=== PATIENT | female | born 1965 | race Caucasian/White ===

== ENCOUNTER 2016-09-06 14:50 | Emergency (ER) | payer MEDICAID ==
[2016-09-06 15:31] VITALS: BP 125/68
[2016-09-06] MEDS ORDERED: Cyclobenzaprine TAB* 10 MG PO ONE (16:05)
[2016-09-06] MEDS ORDERED: Ketorolac INJ* 30 MG/ML 1 ML VIAL IM ONE (16:05)
--- NOTE | 2016-09-06 16:18 | UC ---
Dental HPI - HPI Summary HPI Summary: Pain in R jaw, radiating up into R adventism, rapidly worsening over the last couple days. Denies new dental problems (has pervasive decay but no new gum swelling or tenderness), fever, or trouble breathing. Has had pain from her TMJ before. - History of Current Complaint Chief Complaint: Tarik Stated Complaint: FACE SWOLLEN, JAW/EAR PAIN Time Seen by Provider: 09/06/16 15:45 Hx Obtained From: Patient Hx Last Menstrual Period: [id number] ?: No Onset/Duration: Gradual Onset, Lasting Days Severity: Moderate - Allergies/Home Medications Allergies/Adverse Reactions: Allergies Allergy/AdvReac Type Severity Reaction Status Date / Time WHEAT Allergy Severe "MAKES ME Uncoded 09/06/16 15:31 BLOATED" PMH/Surg Hx/FS Hx/Imm Hx Endocrine History Of: Reports: Diabetes, Thyroid Disease Cardiovascular History Of: Denies: Cardiac Disorders, Hypertension Respiratory History Of: Denies: COPD, Asthma GI/ History Of: Denies: Ulcer Neurological History Of: Reports: Migraine - Hx OF, USUALLY 1 EVERY FEW MONTHS Psychological History Of: Reports: Depression - Hx OF, TAKES NO CURRENT MED - Surgical History Surgical History: Yes Surgery Procedure, Year, and Place: 1987 & 1989 x 2 [facility] Lumpectomy 2014 - Family History Known Family History: Positive: None - Social History Occupation: Unemployed Lives: With Family Alcohol Use: None Substance Use Type: None Smoking Status (MU): Former Smoker Type: Cigarettes Amount Used/How Often: 1PPD Length of Time of Smoking/Using Tobacco: 10 YRS Have You Smoked in the Last Year: No When Did the Patient Quit Smoking/Using Tobacco: 1996 - Immunization History Most Recent Influenza Vaccination: DOES NOT GET Most Recent Tetanus Shot: UNKOWN Most Recent Pneumonia Vaccination: NEVER Review of Systems Constitutional: Negative Skin: Negative Eyes: Negative ENT: Other - R jaw pain Respiratory: Negative Cardiovascular: Negative Gastrointestinal: Negative Genitourinary: Negative Motor: Negative Neurovascular: Negative Musculoskeletal: Negative Neurological: Negative Psychological: Negative All Other Systems Reviewed And Are Negative: Yes Physical Exam Triage Information Reviewed: Yes Appearance: Pain Distress - moderate, Obese Vital Signs: Initial Vital Signs Temp 98.4 F 09/06/16 15:23 Pulse 64 09/06/16 15:23 Resp 16 09/06/16 15:23 BP 125/68 09/06/16 15:23 Pulse Ox 100 09/06/16 15:23 Vital Signs Reviewed: Yes Eye Exam: Normal Eyes: Positive: Conjunctiva Clear ENT: Positive: Hearing grossly normal, Pharynx normal, TMs normal, Other: - R TMJ tender. Negative: Nasal congestion, Nasal drainage, Tonsillar swelling, Tonsillar exudate Dental: Positive: Gross Decay/Caries @ - pervasive, R rear teeth mostly decayed to gums Neck exam: Normal Neck: Positive: Supple, Nontender, No Lymphadenopathy Respiratory Exam: Normal Respiratory: Positive: Chest non-tender, Lungs clear, Normal breath sounds, No respiratory distress, No accessory muscle use Cardiovascular Exam: Normal Cardiovascular: Positive: RRR, No Murmur Musculoskeletal Exam: Normal Neurological Exam: Normal Neurological: Positive: Alert Psychological Exam: Normal Skin Exam: Normal Dental Complaint Course/Dx - Differential Dx/Diagnosis Provider Diagnoses: R TMJ pain. Elevated blood pressure due to pain Discharge - Discharge Plan Condition: Stable Disposition: HOME Prescriptions: Cyclobenzaprine TAB* [Flexeril 10 MG TAB*] 10 mg PO TID PRN #15 tab PRN Reason: Pain Ketorolac TAB (NF) [Toradol TAB (NF)] 10 mg PO Q8H #15 tab Patient Education Materials: Temporomandibular Disorder (ED) Referrals: Leanna Thomas PA [Primary Care Provider] - Additional Instructions: Avoid any food that requires chewing until your pain is markedly improved. If you do not feel somewhat better by , please see your primary care provider.
== END 2016-09-06 16:32 | disposition home or self-care (01) ==
LOC: UCEAST 14:50
DX: M26.601 Right temporomandibular joint disorder, unspecified (principal); R03.0 Elevated blood-pressure reading, without diagnosis of hypertension; E66.9 Obesity, unspecified; Z87.891 Personal history of nicotine dependence
CPT/HCPCS: 96372; 99212; A9270-GY; G0463; J1885

== ENCOUNTER 2017-07-16 14:55 | Emergency (ER) | payer MEDICAID ==
[2017-07-16 18:28] VITALS: BP 115/54
--- NOTE | 2017-07-16 19:36 | UC ---
Respiratory Complaint HPI - HPI Summary HPI Summary: 2 DAYS OF HOARSENESS, PND, COUGH AND CHEST SORENESS FROM COUGHING. NO FEVER, ST , CARNEY, NAUSEA OR BODY ACHES. - History of Current Complaint Chief Complaint: UCGeneralIllness Stated Complaint: SORE THROAT Time Seen by Provider: 07/16/17 18:53 Hx Obtained From: Patient Hx Last Menstrual Period: [id number] Onset/Duration: Gradual Onset, Lasting Days, Still Present Timing: Constant Severity Initially: Moderate Severity Currently: Moderate Pain Intensity: 5 Pain Scale Used: 0-10 Numeric Character: Cough: Productive Aggravating Factors: Nothing Alleviating Factors: Nothing Associated Signs And Symptoms: Positive: URI, Nasal Congestion, Hoarseness. Negative: Dyspnea, Fever, Chills, Pleuritic Chest Pain, Wheezing - Allergies/Home Medications Allergies/Adverse Reactions: Allergies Allergy/AdvReac Type Severity Reaction Status Date / Time WHEAT Allergy Severe "MAKES ME Uncoded 07/16/17 18:18 BLOATED" PMH/Surg Hx/FS Hx/Imm Hx - Additional Past Medical History Additional PMH: FIBROMYALGIA Endocrine History: Diabetes, Hypothyroidism Cardiovascular History: Hypertension - Surgical History Surgical History: Yes Surgery Procedure, Year, and Place: 1987 & 1989 x 2 [facility] Lumpectomy 2014. gastric bypass 2014 - Family History Known Family History: Positive: Hypertension - Social History Alcohol Use: None Substance Use Type: None Smoking Status (MU): Light Every Day Tobacco Smoker Type: Cigarettes Amount Used/How Often: 10 cig/ days Length of Time of Smoking/Using Tobacco: 10 YRS Have You Smoked in the Last Year: No When Did the Patient Quit Smoking/Using Tobacco: 1996 - Immunization History Most Recent Influenza Vaccination: DOES NOT GET Most Recent Tetanus Shot: UNKOWN Most Recent Pneumonia Vaccination: NEVER Review of Systems Constitutional: Negative ENT: Ear Ache, Nasal Discharge Respiratory: Cough Cardiovascular: Negative Gastrointestinal: Negative Musculoskeletal: Negative All Other Systems Reviewed And Are Negative: Yes Physical Exam Triage Information Reviewed: Yes Appearance: Well-Appearing, No Pain Distress, Well-Nourished Vital Signs: Initial Vital Signs Temp 98.3 F 07/16/17 18:22 Pulse 73 07/16/17 18:22 Resp 16 07/16/17 18:22 BP 115/54 07/16/17 18:22 Pulse Ox 100 07/16/17 18:22 Vital Signs Reviewed: Yes Eyes: Positive: Conjunctiva Clear ENT: Positive: Hearing grossly normal, Pharynx normal, TMs normal, Hoarse voice Neck: Positive: Supple, Nontender, No Lymphadenopathy Respiratory Exam: Normal Cardiovascular Exam: Normal Abdomen Description: Positive: Soft Musculoskeletal: Positive: No Edema Neurological: Positive: Alert Psychological: Positive: Age Appropriate Behavior Skin: Negative: rashes UC Diagnostic Evaluation - Laboratory O2 Sat by Pulse Oximetry: 100 Respiratory Course/Dx - Differential Dx/Diagnosis Provider Diagnoses: ACUTE URI/LARYNGITIS Discharge - Discharge Plan Condition: Stable Disposition: HOME Patient Education Materials: Laryngitis (ED), Upper Respiratory Infection (ED) Referrals: Kerri Thomas [Primary Care Provider] - If Needed Additional Instructions: YOUR SYMPTOMS ARE LIKELY VIRALLY MEDIATED AND SHOULD RESOLVE ON THEIR OWN WITH TIME. REST, HYDRATE, OTC MEDS NEEDED. SEEK FOLLOW-UP IF YOU ARE NOT IMPROVING OVER THE NEXT 1-2 WEEKS. IF YOU HAVE ANY QUESTION OR CONCERNS YOU MAY CALL ME HERE ON TUESDAY 7AM-2:30PM OR TUESDAY 2:30PM-10PM.
== END 2017-07-16 19:41 | disposition home or self-care (01) ==
LOC: UCEAST 14:55
DX: J06.9 Acute upper respiratory infection, unspecified (principal); J04.0 Acute laryngitis; M79.7 Fibromyalgia; E11.9 Type 2 diabetes mellitus without complications; E03.9 Hypothyroidism, unspecified; I10 Essential (primary) hypertension; Z98.84 Bariatric surgery status; Z87.891 Personal history of nicotine dependence
CPT/HCPCS: 99211; G0463

== ENCOUNTER 2017-08-13 12:41 | Emergency (ER) | payer OTHER, MEDICAID ==
[2017-08-13 14:32] VITALS: BP 110/60
--- NOTE | 2017-08-13 15:05 | UC ---
Respiratory Complaint HPI - HPI Summary HPI Summary: worsening cough, sinus pain and congestion thick green and yellow sputum, chills and fatigue - History of Current Complaint Chief Complaint: UCGeneralIllness Stated Complaint: COUGH,CONGESTED Time Seen by Provider: 08/13/17 14:58 Hx Obtained From: Patient Hx Last Menstrual Period: [id number] ?: No Onset/Duration: Gradual Onset, Lasting Days - 7, Worse Since - getting worse daily Timing: Constant Severity Initially: Moderate Severity Currently: Severe Pain Intensity: 10 Pain Scale Used: 0-10 Numeric Character: Cough: Productive Aggravating Factors: Deep Breaths Alleviating Factors: Nothing Associated Signs And Symptoms: Positive: Fever, Chills, Pleuritic Chest Pain, URI, Nasal Congestion, Sinus Discomfort - Allergies/Home Medications Allergies/Adverse Reactions: Allergies Allergy/AdvReac Type Severity Reaction Status Date / Time WHEAT Allergy Severe "MAKES ME Uncoded 08/13/17 14:19 BLOATED" Home Medications: Home Medications Liothyronine TAB* [Cytomel TAB*] 25 mcg PO DAILY 08/13/17 [History Confirmed 03/23] Omeprazole CAP* [Prilosec CAP* 20 MG] 20 mg PO DAILY 08/13/17 [History Confirmed 08/13/17] Propranolol TAB* [Inderal TAB*] 20 mg PO TID 08/13/17 [History Confirmed ] Venlafaxine EXT RELEASE CAP* [Effexor Xr CAP*] 100 mg PO BID 08/13/17 [History Confirmed 08/13/17] PMH/Surg Hx/FS Hx/Imm Hx Previously Healthy: No Endocrine History: Hypothyroidism GI/ History: Gastroesophageal Reflux Neurological History: Migraine Psychological History: Depression Cancer History: Breast Cancer - Surgical History Surgical History: Yes Surgery Procedure, Year, and Place: 1987 & 1989 x 2 [facility] Lumpectomy 2014. gastric bypass 2015 - Family History Known Family History: Positive: None, Hypertension - Social History Occupation: Unemployed Lives: With Family Alcohol Use: None Substance Use Type: None Smoking Status (MU): Former Smoker Type: Cigarettes Amount Used/How Often: 10 cig/ days Length of Time of Smoking/Using Tobacco: 10 YRS Have You Smoked in the Last Year: No When Did the Patient Quit Smoking/Using Tobacco: 1996 - Immunization History Most Recent Influenza Vaccination: DOES NOT GET Most Recent Tetanus Shot: UNKOWN Most Recent Pneumonia Vaccination: NEVER Review of Systems Constitutional: Chills, Fatigue Skin: Negative Eyes: Negative ENT: Ear Ache, Nasal Discharge, Sinus Congestion, Sinus Pain/Tenderness Respiratory: Cough Cardiovascular: Negative Gastrointestinal: Negative Genitourinary: Negative Motor: Negative Neurovascular: Negative Musculoskeletal: Negative Neurological: Headache Psychological: Negative Is Patient Immunocompromised?: No All Other Systems Reviewed And Are Negative: Yes Physical Exam Triage Information Reviewed: Yes Appearance: Well-Appearing, No Pain Distress, Well-Nourished Vital Signs: Initial Vital Signs Temp 98.2 F 08/13/17 14:25 Pulse 69 08/13/17 14:25 Resp 18 08/13/17 14:25 BP 110/60 08/13/17 14:25 Pulse Ox 98 08/13/17 14:25 Vital Signs Reviewed: Yes Eye Exam: Normal Eyes: Positive: Conjunctiva Clear ENT Exam: Normal ENT: Positive: Normal ENT inspection, Hearing grossly normal, Pharynx normal, Nasal congestion, Nasal drainage, Sinus tenderness, Uvula midline. Negative: TMs normal, Tonsillar swelling, Tonsillar exudate, Trismus, Muffled voice, Hoarse voice, Dental tenderness Dental Exam: Normal Neck exam: Normal Neck: Positive: Supple, Nontender, No Lymphadenopathy Respiratory Exam: Normal Respiratory: Positive: Chest non-tender, Lungs clear, No respiratory distress, No accessory muscle use, Decreased breath sounds Cardiovascular Exam: Normal Cardiovascular: Positive: RRR, No Murmur, Pulses Normal, Brisk Capillary Refill Musculoskeletal Exam: Normal Musculoskeletal: Positive: Strength Intact, ROM Intact, No Edema Neurological Exam: Normal Neurological: Positive: Alert, Muscle Tone Normal Psychological Exam: Normal Skin Exam: Normal Diagnostic Evaluation - Laboratory O2 Sat by Pulse Oximetry: 98 Respiratory Course/Dx - Course Course Of Treatment: Augmentin, flonase, albuterol, robitussin AC increase fluids follow with pcp - Differential Dx/Diagnosis Provider Diagnoses: Acute Bronchitis/Sinusitis Discharge - Discharge Plan Condition: Stable Disposition: HOME Prescriptions: Albuterol HFA INHALER* [Ventolin HFA Inhaler*] 2 puff INH Q4H PRN #1 mdi PRN Reason: cough/chest congestion Amoxicillin/Clavulanate TAB* [Augmentin TAB 875*] 875 mg PO BID #20 tab Fluticasone NASAL SPRAY 50MCG* [Flonase NASAL SPRAY 50MCG*] 2 spray BOTH NARES DAILY #1 btl guaiFENesin/CODIEN 100MG-10MG* [Robitussin AC 100Mg-10Mg*] 5 - 10 ml PO Q4H PRN #120 udc MDD 40 PRN Reason: cough Patient Education Materials: Sinusitis (ED), Acute Bronchitis (ED), Bronchospasm (ED) Referrals: Kerri Thomas [Primary Care Provider] - If Needed
== END 2017-08-13 15:24 | disposition home or self-care (01) ==
LOC: UCEAST 12:41
DX: J20.9 Acute bronchitis, unspecified (principal); J32.9 Chronic sinusitis, unspecified; E03.9 Hypothyroidism, unspecified; K21.9 Gastro-esophageal reflux disease without esophagitis; G43.909 Migraine, unspecified, not intractable, without status migrainosus; F32.9 Major depressive disorder, single episode, unspecified; Z98.84 Bariatric surgery status; Z85.3 Personal history of malignant neoplasm of breast; Z87.891 Personal history of nicotine dependence
CPT/HCPCS: 99212; G0463

== ENCOUNTER 2017-10-28 16:17 | Emergency (ER) | payer MEDICARE, MEDICAID ==
[2017-10-28] MEDS ORDERED: NS 0.9% 1000 ML* 1,000 ML IV ONE (17:06)
--- NOTE | 2017-10-28 17:41 | RAD ---
Indication: Syncopal episode. Lethargy. Fibromyalgia. Comparison: November 02, 2010 Technique: Noncontrast CT vertex of skull through foramen magnum. Report: The sulci, ventricles, and basal cisterns are normal for age. Pardo matter white matter differentiation is preserved without evidence for edema. No intra or extra axial hemorrhage, mass, or fluid collection detected. Unchanged indolent appearing 0.6 cm maximum dimension focus of calcification ossification along the RIGHT margin of the interhemispheric falx at the vertex without concern. Unremarkable visualized orbital contents. Unremarkable calvarium and skull base. Unremarkable scalp. The visualized paranasal sinuses and mastoid air spaces are clear. IMPRESSION: Negative unenhanced head CT without suspicious change compared with the November 02, 2010 exam.
--- NOTE | 2017-10-28 17:47 | RAD ---
Indication: Syncope. Lethargy. Comparison: July 02, 2013 Technique: Sitting AP chest 1733 hours Report: Obese body habitus limits image quality. Clear lungs and pleural spaces. Negative for pneumothorax. The heart, pulmonary vasculature, and mediastinal contours are unremarkable. Unremarkable osseous structures and soft tissue contours. IMPRESSION: No evidence for acute intrathoracic disease.
[2017-10-28 17:57] LABS: Urine Appearance Cloudy; Urine Blood Negative (Negative); Urine Color Yellow; Urine Ketones Negative (Negative); Urine Protein Negative (Negative); Urine Specific Gravity 1.025 (1.010-1.030); Urine Urobilinogen Negative (Negative)
[2017-10-28 18:12] LABS: EGFR Non-African American 50.2 (>60)
[2017-10-28 18:52] LABS: ABS Basophils 0 10^3/ul (0-0.2); ABS Eosinophils 0 10^3/ul (0-0.6); ABS Lymphocytes 2.5 10^3/ul (1.0-4.8); ABS Monocytes 0.4 10^3/ul (0-0.8); ABS Nucleated RBC 0 10^3/ul; Eosinophil % 0.4 % (0-6); Hematocrit 36 % (35-47); Lymphocyte % 42.3 % (25-47); Mean Corpuscular HGB Conc 33 g/dl (31-36); Mean Corpuscular Hemoglobin 28 pg (27-31); Mean Corpuscular Volume 86 fL (80-97); Nucleated Red Blood Cells % 0.1; Platelet Count 200 10^3/ul (150-450); Red Blood Count 4.21 10^6/ul (4.0-5.4); Red Cell Distribution Width 17 % (10.5-15)
[2017-10-28] MEDS ORDERED: Ketorolac INJ* 30 MG/ML 1 ML VIAL IV PUSH ONE (19:04)
[2017-10-28 19:57] VITALS: BP 138/67
--- NOTE | 2017-10-28 21:03 | ED ---
Della Blanchard Rebecca, scribed for Jose Hanks MD on 10/28/17 at 1705 . Complex/Multi-Sys Presentation - HPI Summary HPI Summary: Pt is a 52 y/o F who presents to ED c/o fatigue, generalized weakness, and arthralgias. Initially, on triage, her pain was moderate, ranked 5/10. Additionally describes having a "major brain fog," constipation, and that she had "passed out" and was "slumped over" in a chair last night. Denies CP, SOB, fever, V/D. PMHx fibromyalgia - typically takes 50 mg Tramadol BID. Has been trying to see her PCP with [facility] but has been unable to get in to restart Tramadol and Synthroid. - History Of Current Complaint Chief Complaint: EDGeneral Time Seen by Provider: 10/28/17 16:59 Hx Obtained From: Patient Onset/Duration: Still Present Severity Currently: Moderate - 5/10 Location: Pain At: - Arthralgias Aggravating Factor(s): Nothing Alleviating Factor(s): Nothing Associated Signs And Symptoms: Positive: Other - Fatigue, arthralgias, generalzied weakness - Allergies/Home Medications Allergies/Adverse Reactions: Allergies Allergy/AdvReac Type Severity Reaction Status Date / Time WHEAT Allergy Severe "MAKES ME Uncoded 10/28/17 16:30 BLOATED" PMH/Surg Hx/FS Hx/Imm Hx Endocrine/Hematology History: Reports: Hx Diabetes, Hx Thyroid Disease Cardiovascular History: Reports: Hx Hypotension, Hx Hypertension Respiratory History: Reports: Hx Sleep Apnea Denies: Hx Asthma, Hx Chronic Obstructive Pulmonary Disease (COPD) GI History: Reports: Hx Gastroesophageal Reflux Disease - ON DAILY PRILOSEC, Hx Irritable Bowel Denies: Hx Ulcer Musculoskeletal History: Reports: Hx Fibromyalgia Sensory History: Reports: Hx Contacts or Glasses - GLASSES Opthamlomology History: Reports: Hx Contacts or Glasses - GLASSES Neurological History: Reports: Hx Headaches, Hx Migraine - Hx OF, USUALLY 1 EVERY FEW MONTHS Psychiatric History: Reports: Hx Depression - Hx OF, TAKES NO CURRENT MED Denies: Hx Substance Abuse - Cancer History Cancer Type, Location and Year: breast cancer 11/2014 - Surgical History Surgery Procedure, Year, and Place: 1987 & 1989 x 2 [facility] Lumpectomy 2014. gastric bypass 2015 Hx Anesthesia Reactions: No Infectious Disease History: No Infectious Disease History: Denies: Hx Hepatitis, Hx Human Immunodeficiency Virus (HIV), History Other Infectious Disease, Traveled Outside the [place] in Last 30 Days - Family History Known Family History: Positive: Hypertension - Social History Alcohol Use: None Substance Use Type: Reports: None Hx Tobacco Use: No Smoking Status (MU): Former Smoker Type: Cigarettes Amount Used/How Often: 10 cig/ days Length of Time of Smoking/Using Tobacco: 10 YRS Have You Smoked in the Last Year: No Review of Systems Positive: Fatigue, Other - Generalized weakness, "major brain fog". Negative: Fever Negative: Chest Pain Negative: Shortness Of Breath Positive: Other - Constipation. Negative: Vomiting, Diarrhea Positive: Arthralgia Neurological: Other - "passed out" last night All Other Systems Reviewed And Are Negative: Yes Physical Exam - Summary Physical Exam Summary: VITAL SIGNS: Reviewed. GENERAL: ~Patient is a well-developed and nourished female who is lying comfortable in the stretcher. ~Patient is not in any acute respiratory distress. Weak and disheveled. HEAD AND FACE: No signs of trauma. ~No ecchymosis, hematomas or skull depressions. No sinus tenderness. EYES: PERRLA, EOMI x 2, No injected conjunctiva, no nystagmus. EARS: Hearing grossly intact. Ear canals and tympanic membranes are within normal limits. MOUTH: Oropharynx within normal limits. NECK: Supple, trachea is midline, no adenopathy, no JVD, no carotid bruit, no c- spine tenderness, neck with full ROM. CHEST: Symmetric, no tenderness at palpation LUNGS: Clear to auscultation bilaterally. No wheezing or crackles. CVS: Regular rate and rhythm, S1 and S2 present, no murmurs or gallops appreciated. ABDOMEN: Soft, non-tender. No signs of distention. No rebound no guarding, and no masses palpated. Bowel sounds are normal. EXTREMITIES: FROM in all major joints, no edema, no cyanosis or clubbing. NEURO: Alert and oriented x 3. No acute neurological deficits. Speech is normal and follows commands. SKIN: Dry and warm GCS: 15 Triage Information Reviewed: Yes Vital Signs On Initial Exam: Initial Vitals Temp Pulse Resp BP Pulse Ox 98.4 F 65 18 116/72 99 10/28/17 16:27 10/28/17 16:27 10/28/17 16:27 10/28/17 16:27 10/28/17 16:27 Vital Signs Reviewed: Yes Diagnostics - Vital Signs Vital Signs Temp Pulse Resp BP Pulse Ox 10/28/17 16:27 98.4 F 65 18 116/72 99 - Laboratory Lab Results: Lab Results 10/28/17 10/28/17 10/28/17 Range/Units 17:37 17:38 17:38 WBC Cancelled RBC Cancelled Hgb Cancelled Hct Cancelled MCV Cancelled MCH Cancelled MCHC Cancelled RDW Cancelled Plt Count Cancelled MPV Cancelled Neut % (Auto) Cancelled Lymph % (Auto) Cancelled Webster % (Auto) Cancelled Eos % (Auto) Cancelled Baso % (Auto) Cancelled Absolute Neuts (auto) Cancelled Absolute Lymphs (auto) Cancelled Absolute Monos (auto) Cancelled Absolute Eos (auto) Cancelled Absolute Basos (auto) Cancelled Absolute Nucleated RBC Cancelled CBC Comment Cancelled Nucleated RBC % Cancelled Diff Slide Review Cancelled Hypogranular Platelets Cancelled Clumped Platelets Cancelled Large Platelets Cancelled Giant Platelets Cancelled Sodium (139-145) mmol/L Potassium Chloride (101-111) mmol/L Carbon Dioxide (22-32) mmol/L Anion Gap (2-11) mmol/L BUN (6-24) mg/dL Creatinine (0.51-0.95) mg/dL Est GFR ( Amer) (>60) Est GFR (Non-Af Amer) (>60) BUN/Creatinine Ratio (8-20) Glucose (70-100) mg/dL Lactic Acid (0.5-2.0) mmol/L Calcium (8.6-10.3) mg/dL Magnesium Total Bilirubin (0.2-1.0) mg/dL AST ALT (7-52) U/L Alkaline Phosphatase (34-104) U/L Ammonia TNP Troponin I (<0.04) ng/mL Total Protein (6.4-8.9) g/dL Albumin (3.2-5.2) g/dL Globulin (2-4) g/dL Albumin/Globulin Ratio (1-3) TSH Urine Color Yellow Urine Appearance Cloudy Urine pH 5.0 (5-9) Ur Specific Weston 1.025 (1.010-1.030) Urine Protein Negative (Negative) Urine Ketones Negative (Negative) Urine Blood Negative (Negative) Urine Nitrate Negative (Negative) Urine Bilirubin Negative (Negative) Urine Urobilinogen Negative (Negative) Ur Leukocyte Esterase 1+ A (Negative) Urine WBC (Auto) 2+(11-20/hpf) A (Absent) Urine RBC (Auto) Absent (Absent) Ur Squamous Epith Cells Present A (Absent) Calcium Oxalate Crystal Present A (Absent) Urine Bacteria Absent (Absent) Urine Glucose Negative (Negative) Urine Ascorbic Acid * A (Negative) Serum Alcohol (<10) mg/dL 10/28/17 10/28/17 10/28/17 Range/Units 17:38 17:38 18:25 WBC 6.0 RBC 4.21 Hgb 12.0 Hct 36 MCV 86 MCH 28 MCHC 33 RDW 17 H Plt Count 200 MPV 8.0 Neut % (Auto) 50.3 Lymph % (Auto) 42.3 Webster % (Auto) 6.8 Eos % (Auto) 0.4 Baso % (Auto) 0.2 Absolute Neuts (auto) 3.0 Absolute Lymphs (auto) 2.5 Absolute Monos (auto) 0.4 Absolute Eos (auto) 0 Absolute Basos (auto) 0 Absolute Nucleated RBC 0 CBC Comment Nucleated RBC % 0.1 Diff Slide Review Hypogranular Platelets Clumped Platelets Large Platelets Giant Platelets Sodium 138 L (139-145) mmol/L Potassium TNP Chloride 102 (101-111) mmol/L Carbon Dioxide 31 (22-32) mmol/L Anion Gap 5 (2-11) mmol/L BUN 21 (6-24) mg/dL Creatinine 1.13 H (0.51-0.95) mg/dL Est GFR ( Amer) 64.5 (>60) Est GFR (Non-Af Amer) 50.2 (>60) BUN/Creatinine Ratio 18.6 (8-20) Glucose 73 (70-100) mg/dL Lactic Acid 0.7 (0.5-2.0) mmol/L Calcium 9.2 (8.6-10.3) mg/dL Magnesium TNP Total Bilirubin 0.40 (0.2-1.0) mg/dL AST TNP ALT 37 (7-52) U/L Alkaline Phosphatase 68 (34-104) U/L Ammonia Troponin I 0.00 (<0.04) ng/mL Total Protein 7.1 (6.4-8.9) g/dL Albumin 3.8 (3.2-5.2) g/dL Globulin 3.3 (2-4) g/dL Albumin/Globulin Ratio 1.2 (1-3) TSH Pending Urine Color Urine Appearance Urine pH (5-9) Ur Specific Weston (1.010-1.030) Urine Protein (Negative) Urine Ketones (Negative) Urine Blood (Negative) Urine Nitrate (Negative) Urine Bilirubin (Negative) Urine Urobilinogen (Negative) Ur Leukocyte Esterase (Negative) Urine WBC (Auto) (Absent) Urine RBC (Auto) (Absent) Ur Squamous Epith Cells (Absent) Calcium Oxalate Crystal (Absent) Urine Bacteria (Absent) Urine Glucose (Negative) Urine Ascorbic Acid (Negative) Serum Alcohol < 10 (<10) mg/dL 10/28/17 10/28/17 Range/Units 18:25 18:25 WBC RBC Hgb Hct MCV MCH MCHC RDW Plt Count MPV Neut % (Auto) Lymph % (Auto) Webster % (Auto) Eos % (Auto) Baso % (Auto) Absolute Neuts (auto) Absolute Lymphs (auto) Absolute Monos (auto) Absolute Eos (auto) Absolute Basos (auto) Absolute Nucleated RBC CBC Comment Nucleated RBC % Diff Slide Review Hypogranular Platelets Clumped Platelets Large Platelets Giant Platelets Sodium (139-145) mmol/L Potassium 4.2 Chloride (101-111) mmol/L Carbon Dioxide (22-32) mmol/L Anion Gap (2-11) mmol/L BUN (6-24) mg/dL Creatinine (0.51-0.95) mg/dL Est GFR ( Amer) (>60) Est GFR (Non-Af Amer) (>60) BUN/Creatinine Ratio (8-20) Glucose (70-100) mg/dL Lactic Acid (0.5-2.0) mmol/L Calcium (8.6-10.3) mg/dL Magnesium 2.2 Total Bilirubin (0.2-1.0) mg/dL AST 51 H ALT (7-52) U/L Alkaline Phosphatase (34-104) U/L Ammonia 52 Troponin I (<0.04) ng/mL Total Protein (6.4-8.9) g/dL Albumin (3.2-5.2) g/dL Globulin (2-4) g/dL Albumin/Globulin Ratio (1-3) TSH Urine Color Urine Appearance Urine pH (5-9) Ur Specific Weston (1.010-1.030) Urine Protein (Negative) Urine Ketones (Negative) Urine Blood (Negative) Urine Nitrate (Negative) Urine Bilirubin (Negative) Urine Urobilinogen (Negative) Ur Leukocyte Esterase (Negative) Urine WBC (Auto) (Absent) Urine RBC (Auto) (Absent) Ur Squamous Epith Cells (Absent) Calcium Oxalate Crystal (Absent) Urine Bacteria (Absent) Urine Glucose (Negative) Urine Ascorbic Acid (Negative) Serum Alcohol (<10) mg/dL Result Diagrams: 10/28/17 18:25 10/28/17 18:25 Lab Statement: Any lab studies that have been ordered have been reviewed, and results considered in the medical decision making process. - Radiology CXR Xray Interpretation: No Acute Changes - No evidence for acute intrathoracic disease. ED physician reviewed this radiology report. Radiology Interpretation Completed By: Radiologist - CT Brain CT CT Interpretation: No Acute Changes - Negative unenhanced head CT without suspicious change compared with the November 02, 2010 exam. ED physician reviewed this radiology report. CT Interpretation Completed By: Radiologist - EKG 1730 Cardiac Rate: NL - 54 bpm EKG Rhythm: Sinus Rhythm EKG Interpretation: No ST elevations, diffuse T wave abnormality EKG Comparison: Other - CHanged from prior EKG on 07/02/2013 Re-Evaluation - Re-Evaluation First Eval Re-Evaluation Time: 19:44 Change: Improved Comment: Discussed results and discharge. Pt is doing well. Complex Multi-Symp Course/Dx Assessment/Plan: This patient is a 52-year-old female who presents to the emergency room with a chief complaint of being tired, very weak and fatigued. The patient reports that she has history of fibromyalgia. Blow to his results without any significant abnormality except for sodium 138 and creatinine 1.13. Urinalysis seems to be contaminated. The patient was given IV fluids and she was given Toradol for the pain. Chest x-ray impression: No evidence of acute intrathoracic disease. Head CT impression: Negative for acute intracranial pathology. I discussed all the findings and test results with the patient. Patient was instructed to return to the emergency room immediately if any of the symptoms return or worsens. Plan of care was discussed with the patient and understands and agrees. All questions were answered at patient satisfaction. There were no further complaints or concerns. Lung exam before discharge: CTA B /L. Good air exchange. No wheezing or crackles heard. CVS: S1 and S2 present. No murmurs appreciated. Patient is alert and oriented x 3. Patient is hemodynamically stable. Patient will be discharged home with follow up PCP in the next 2-3 days - Diagnoses Provider Diagnoses: Chronic fatigue, Fibromyalgia Discharge - Sign-Out/Discharge Documenting (check all that apply): Discharge/Admit/Transfer - Discharge - Discharge Plan Condition: Stable Disposition: HOME Patient Education Materials: Fibromyalgia (ED), Fatigue (ED) Referrals: Americo Champion MD [Primary Care Provider] - 3 Days Additional Instructions: RETURN TO ED FOR ANY NEW OR WORSENING SYMPTOMS. The documentation as recorded by the Della chavarria Rebecca accurately reflects the service I personally performed and the decisions made by , Jose Hanks MD.
== END 2017-10-28 19:55 | disposition home or self-care (01) ==
LOC: ED 16:17
DX: M79.7 Fibromyalgia (principal); R53.83 Other fatigue; R53.1 Weakness; Z87.891 Personal history of nicotine dependence
CPT/HCPCS: 36415; 70450; 71045; 80053; 80320; 81003; 81015; 82140; 83605; 83735; 84443; 84484; 85025; 87086; 93005; 96360; 99284; G0480; J1885